=== PATIENT | female | born 1995 ===

== ENCOUNTER 2021-09-18 07:30 | Inpatient (IN) | payer OTHER ==
[~2021-09-18] VITALS: Ht 167.6 cm; Wt 3.2 kg
[2021-09-18] MEDS ORDERED: PRENATAL (08:46)
[2021-09-18] MEDS ORDERED: ACIDOPHILUS1 EAC1 (08:47)
[2021-09-26] MEDS ORDERED: FOLIC ACID0.8 M1 PO (07:08)
[2021-09-26] MEDS ORDERED: PRENATAL + DHA1 EAC1 PO (11:35)
== END 2021-09-29 15:37 | disposition home or self-care (01) | DRG 788 ==
LOC: SURH 09-19 07:30 → O/R 09-26 06:35 → SURG-SUITE 09-26 06:35
PROVIDERS: ADMIT Obstetrics & Gynecology; ATTEND Obstetrics & Gynecology
PROC: 4A1HXFZ Monitoring of Products of Conception, Cardiac Rhythm, External Approach (ICD-10-PCS; 2021-09-26)
PROC: 10D00Z1 Extraction of Products of Conception, Low, Open Approach (ICD-10-PCS; principal; 2021-09-26 10:30)
DX: O34.211 Maternal care for low transverse scar from previous cesarean delivery (principal); Z53.29 Procedure and treatment not carried out because of patient's decision for other reasons; O99.824 Streptococcus B carrier state complicating childbirth; Z37.0 Single live birth; Z3A.39 39 weeks gestation of pregnancy

== ENCOUNTER 2022-09-07 14:07 | Emergency (ER) | payer OTHER ==
[~2022-09-07] VITALS: Ht 167.6 cm; Wt 98.0 kg
[~2022-09-07 14:07] MED LIST: ACIDOPHILUS1 EAC1; FOLIC ACID0.8 M1 PO; PRENATAL; PRENATAL + DHA1 EAC1 PO
[2022-09-07] MEDS ORDERED: SINGULAIR10 MG PO (15:15)
[2022-09-07] MEDS ORDERED: ALBUTEROL2.5 MG/3 M IH (15:16)
[2022-09-07] MEDS ORDERED: IPRATROPIU0.2 MG/1 M IH (15:16)
== END 2022-09-07 19:00 | disposition home or self-care (01) ==
LOC: ER 14:07
DX: H92.01 Otalgia, right ear (principal); T16.1XXA Foreign body in right ear, initial encounter; Z88.0 Allergy status to penicillin